=== PATIENT | female | born 1980 | race Caucasian/White ===

== ENCOUNTER → 2016-08-26 | Outpatient (CLI) | payer BC ==
--- NOTE | 2016-08-26 13:18 | CT ---
EXAMINATION TYPE: CT abdomen pelvis w con DATE OF EXAM: 08/26/2016 COMPARISON: 04/23/2012 HISTORY: 36-year-old female RLQ pain, history of ovarian cyst TECHNIQUE: Contiguous axial scanning of the abdomen and pelvis following administration of 100 ml Omn ipaque 300 IV contrast. Delayed images through the kidneys and coronal/sagittal reconstructions perf ormed. CT DLP: 1560.3 mGycm Automated exposure control for dose reduction was used. FINDINGS: The heart is normal size without pericardial effusion. Lung bases clear without pleural effusion. There is a tiny hiatal hernia. No focal liver lesion or biliary ductal dilatation. Portal venous system is patent. Gallbladder, adrenal glands, kidneys, spleen, and pancreas appear within normal limits. No dilated small bowel, free fluid, or free air. No mesenteric or retroperitoneal lymphadenopathy. While the appendix is not seen, no focal inflammatory changes seen in the right lower quadrant to sug gest appendicitis. Moderate stool within the right hemicolon. Bladder urine distended. Uterus and ovaries are visualized with follicular change in both sides. Righ t ovary measures 2.4 x 2.9 x 3.7 cm for a volume of 12.9 ml which is normal. In the left ovary, there is a 1.8 cm peripherally enhancing crenulated structure suggesting a recently ruptured follicle or c orpus luteum. Bilateral tubal ligation clips are present. No pelvic free fluid or pelvic lymphadenopa thy seen. Bones: Sclerosis at the left greater than right SI joint suggesting condensing ileitis. No osseous de structive process. IMPRESSION: 1. NORMAL-SIZED OVARIES WITH PHYSIOLOGIC CHANGES. NO PELVIC FREE FLUID. 2. THE APPENDIX IS NOT VISUALIZED. NO SECONDARY FINDINGS OF ACUTE APPENDICITIS IN THE RIGHT LOWER MARTI DRANT. 3. MODERATE STOOL WITHIN THE RIGHT HEMICOLON.
== END | disposition home or self-care (01) ==
LOC: RADCTMAIN 12:02
PROVIDERS: ATTEND Family Medicine
DX: K59.00 Constipation, unspecified (principal); R10.9 Unspecified abdominal pain
CPT/HCPCS: 74177; Q9967

== ENCOUNTER → 2017-01-05 | Outpatient (CLI) | payer BC ==
--- NOTE | 2017-01-05 12:00 | FL ---
EXAMINATION: Cervical and Thoracic Esophagram DATE OF EXAM: 01/05/2017 CLINICAL INDICATION: 36-year-old female with dysphagia, sensation of food sticking in the distal esop hagus. Needing a lot of water to wash food down. COMPARISON: None Total Fluoroscopy Time: 1.24 minutes. Total images: 19 FINDINGS: The swallowing mechanism is normal and hypopharyngeal anatomy is preserved. There is some mild anteri or cervical spondylosis at C6-C7. The cervical and thoracic portions have a normal course and caliber and normal motility. The mucosa i s normal and no persistent filling defect is encountered. There is a small sliding hiatal hernia demonstrated. Suboptimal effort for further assessment of refl ux as the patient became nauseated. IMPRESSION: 1. Small sliding hiatal hernia. 2. Assessment for reflux was limited as the patient became nauseated. 3. Otherwise, no specific abnormality seen.
== END | disposition home or self-care (01) ==
LOC: RADFLWHC 07:59
PROVIDERS: ATTEND Otolaryngology
DX: K44.9 Diaphragmatic hernia without obstruction or gangrene (principal); R13.10 Dysphagia, unspecified
CPT/HCPCS: 74220

== ENCOUNTER → 2018-09-18 | Outpatient (CLI) | payer BC ==
[2018-09-18 09:18] LABS: Basophils # (A) 0.1 k/uL (0-0.2); Basophils % (A) 1 %; Eosinophils # (A) 0.3 k/uL (0-0.7); Eosinophils % (A) 5 %; HCT 43.6 % (34.0-46.0); Lymphocytes # (A) 2.2 k/uL (1.0-4.8); Lymphocytes % (A) 35 %; MCH 29.5 pg (25.0-35.0); MCHC 32.1 g/dL (31.0-37.0); MCV 91.9 fL (80.0-100.0); Mean Platelet Volume 8.1; Monocytes # (A) 0.3 k/uL (0-1.0); Monocytes % (A) 5 %; Neutrophils # (A) 3.2 k/uL (1.3-7.7); Neutrophils % (A) 51 %; Platelet Count 280 k/uL (150-450); RBC 4.75 m/uL (3.80-5.40); RDW 13.9 % (11.5-15.5); WBC 6.2 k/uL (3.8-10.6)
[2018-09-18 09:41] LABS: African American GFR (CKD) >90 (>60 ml/min/1.73 sqM); Anion Gap 8 mmol/L; Blood Urea Nitrogen 12 mg/dL (7-17); Carbon Dioxide 27 mmol/L (22-30); Chloride 104 mmol/L (98-107); Glucose 100 mg/dL (74-99); Potassium 4.7 mmol/L (3.5-5.1); Sodium 139 mmol/L (137-145)
== END | disposition home or self-care (01) ==
LOC: LABPAT 08:45
PROVIDERS: ATTEND Obstetrics & Gynecology
DX: Z01.812 Encounter for preprocedural laboratory examination (principal); N94.6 Dysmenorrhea, unspecified
CPT/HCPCS: 36415; 80051; 82565; 82947; 84520; 85025; 87086

== ENCOUNTER 2018-09-27 05:59 | Observation (INO) | payer BC ==
--- NOTE | 2018-09-23 14:03 | HP ---
HISTORY AND PHYSICAL This is a 38-year-old white female 2, para 2-0-0-2, who presented with a history of dysmenorrhea. She states she has significant severe pain 2 days out of each cycle. She additionally has a history of ovarian cyst in the past. She has a history of tubal ligation 5 years ago. Sonographic evaluation suggests asymmetric thickening of the endometrium, consistent sonographically with adenomyosis. Ovaries normal sonographically. After thorough consultation, patient is electing vaginal hysterectomy. PAST MEDICAL HISTORY: Significant for hypothyroidism and dysmetabolic syndrome. PAST SURGICAL HISTORY: Tubal ligation in the past. CURRENT MEDICATIONS: 1. Synthroid daily. 2. Vitamin D daily. ALLERGIES: None known. FAMILY HISTORY: Significant for coronary artery bypass graft in the patient's father. OBSTETRIC HISTORY: Normal spontaneous vaginal deliveries in 2003 and 2004, 8 to 9 pound infants. SOCIAL HISTORY: Patient has never been a smoker, she is , she denies alcohol or drug use. PHYSICAL EXAM: This is a pleasant white female who is 5 foot 4 inches, 243 pounds, BMI 41, blood pressure 126/78. HEENT: Exam reveals no thyromegaly, no cervical lymphadenopathy. Good dentition. CHEST: Clear to auscultation in all trejo anteriorly and posteriorly. CARDIAC: Exam reveals a regular rate and rhythm with no murmur, click, or rub. Breasts are bilaterally symmetric to inspection with no skin dimpling, nipple discharge, axillary adenopathy, or discernible lesions or masses. EXTREMITIES: Reveal no edema, there are good peripheral pulses noted. Cervix is multiparous, Pap smear is up to date and normal. Uterus is anteverted, anteflexed, smooth and mobile. There is a small amount of prolapse noted in applying pressure to the cervix with a ring forceps. Adnexa are negative to palpation bilaterally. Rectal exam reveals good sphincter tone, FIT negative stool. IMPRESSION: Severe dysmenorrhea. Sonographic findings consistent with adenomyosis. PLAN: We will proceed with vaginal hysterectomy. The patient is aware of the risks, benefits, and alternatives of this plan. She consents to BSO if ovaries do not appear normal to inspection, however, sonographically they appear to be normal. She consents to abdominal hysterectomy if the vaginal approach is not successful. We have reviewed the risks of bleeding, infection, perforation or damage to bowel, bladder, ureters, or indeed any pelvic or abdominal organs. The ACOG pamphlet on the procedure has been given to the patient and reviewed. I believe she understands these risks with no questions or concerns. Risks of anesthesia are also reviewed. MMODL / IJN: [id number] /
[~2018-09-27 05:59] MED LIST: DEXAMETHASONE SOD PHOSPHATE 10 MG/ML 1 ML VIAL IV ONE; LIDOCAINE 1% 20 ML VIAL (10MG/ML) FOR IV START INTRADERMA PRN; ONDANSETRON 4 MG/2 ML VIAL IVP ONE; ONDANSETRON 4 MG/2 ML VIAL IVP PRN; SCOPOLAMINE 1.5MG/72HR PATCH TRANSDERM ONE
[2018-09-27] MEDS: LACTATED RINGERS 1,000 ML IV SCH ×3 (06:35→20:56)
[2018-09-27] MEDS ORDERED: MIDAZOLAM (PF) 2 MG/2 ML VIAL IVP ONE (06:48)
[2018-09-27] MEDS ORDERED: MIDAZOLAM 2 MG/2 ML VIAL ONE (07:25)
[2018-09-27] MEDS ORDERED: NEOSTIGMINE 1 MG/ML 10 ML VIAL ONE (07:25)
[2018-09-27] MEDS ORDERED: LIDOCAINE 1% INJ 10MG/ML (20 ML MDV) ONE (07:25)
[2018-09-27] MEDS ORDERED: MORPHINE SULFATE (PF) 0.3 MG/0.3 ML SYR ONE (07:25)
[2018-09-27] MEDS ORDERED: fentaNYL (PF) 50 MCG/ML 2 ML AMP ONE (07:25)
[2018-09-27] MEDS ORDERED: PROPOFOL 10 MG/ML 20 ML VIAL IV ONE (07:25)
[2018-09-27] MEDS ORDERED: KETAMINE 10 MG/ML 20 ML VIAL ONE (07:25)
[2018-09-27] MEDS ORDERED: ROCURONIUM BROMIDE 10 MG/ML 10 ML VIAL IV ONE (07:25)
[2018-09-27] MEDS ORDERED: SUCCINYLCHOLINE CHLORIDE 100 MG/5 ML SYR IV ONE (07:25)
[2018-09-27] MEDS ORDERED: GLYCOPYRROLATE 0.2 MG/ML 2 ML VIAL ONE (07:25)
[2018-09-27] MEDS ORDERED: SODIUM CHLORIDE 0.9% 50 ML with VASOPRESSIN 20 UNIT IV ONE ×2 (07:45)
[2018-09-27] MEDS ORDERED: BACITRACIN 500 UNIT/GM OINT 28.4 GM TUBE TOPICAL ONE (08:03)
[2018-09-27] MEDS ORDERED: LACTATED RINGERS 1,000 ML IV ONE (08:08)
[2018-09-27] MEDS ORDERED: MORPHINE SULFATE 2 MG/ML SYRINGE IVP PRN (08:31)
[2018-09-27] MEDS ORDERED: diphenhydrAMINE 50 MG/ML 1 ML VIAL IVP PRN (08:31)
[2018-09-27] MEDS ORDERED: NALOXONE 0.4 MG/ML 1 ML VIAL IV PRN (08:31)
[2018-09-27] MEDS ORDERED: KETOROLAC 30 MG/ML 1 ML VIAL IVP PRN (08:50)
[2018-09-27] MEDS ORDERED: ONDANSETRON 4 MG/2 ML VIAL IVP PRN (08:50)
[2018-09-27] MEDS ORDERED: SIMETHICONE 80 MG CHEWABLE PO PRN (08:50)
[2018-09-27] MEDS ORDERED: METOCLOPRAMIDE 5 MG/ML 2 ML VIAL IVP PRN (08:50)
[2018-09-27] MEDS ORDERED: ZOLPIDEM 5 MG TAB PO PRN (08:50)
--- NOTE | 2018-09-27 08:50 | P.OP ---
Date of Procedure: 09/27/18 Preoperative Diagnosis: Severe dysmenorrhea Postoperative Diagnosis: Same, suspect adenomyosis. Normal-appearing ovaries bilaterally. Procedure(s) Performed: Vaginal hysterectomy Anesthesia: CHUCKA Surgeon: Delaney Nguyen Manager Group Home #1: Jocelyne Barber Estimated Blood Loss (ml): 150 IV fluids (ml): 900 Urine output (ml): 150 Pathology: other (Cervix and uterus) Condition: stable Disposition: PACU Operative Findings: Normal-appearing ovaries bilaterally Description of Procedure: Patient is brought to the operating suite, a spinal with Duramorph was placed in the preoperative area. Patient is now given a general anesthetic and put in the dorsal lithotomy position. The appropriate timeout is performed to assure proper patient and procedural identification. Urine hCG is negative. Antibiotics are given. The cervix, vagina, and perineal bodies are all prepped and draped in the usual sterile fashion. The weighted speculum was placed into the vagina. The bladder is drained for 150 mL of clear yellow urine. The anterior lip of the cervix is grasped with a double-tooth tenaculum. The cervix is injected circumferentially with a dilute Pitressin solution. A tribe blade scalpel is used to incise the mucosa circumferentially with a V positioning at 6:00. A sponge rolled finger is used to sweep the mucosa from the underlying fascial plane. At all times care is taken to keep the mucosa swept well from the operative field to avoid bladder and/or ureteral injury. Peritoneum is entered at 6:00 with a Metzenbaum scissor and suture tied with 2-0 Vicryl, held with a hemostat. Large billed speculum is then placed into the peritoneal cavity. The right uterosacral ligament is identified, skeletonized, clamped cut and held laterally with a 0 Vicryl suture. The same is carried out contralaterally. Uterine vasculature is next identified, it is clamped cut and suture ligated. Care is taken to occlude all vessels as vascularization is increased in this particular patient. 2 additional pedicles are taken superior to the vessels. The anterior peritoneum is entered 12:00. The uterus is "walked out" posteriorly. Milagros clamps are used across the final pedicles and the cervix and uterus are removed and sent to pathology. The remaining pedicles are tied securely with 0 Vicryl suture in a Gina stitch, flashed, and retied for very good hemostasis. Sponge stick is used to visualize the ovaries and they appear within normal limits bilaterally. The Filshie clips is in the surgical field and removed. The other clip was not visualized. The speculum is then switched to the shallow weighted speculum and the 2-0 Vicryl suture placed at 6:00 is brought around circumferentially to close the peritoneum. The uterosacral cardinal ligaments that were held are now brought across contralaterally to incorporate the opposite ligament as well as vaginal mucosa. 2 additional hohvau-nb-rmfxd sutures are placed above this area, and one below to completely close the vaginal cough. The field is clean and dry. Luque catheter is placed and urine is clear. The vagina is packed with one-inch iodophor gauze with basic tracing. Patient is brought back to recovery room in very good condition with stable vital signs including blood pressure 125/68, pulse 86. All sponge needle and enhancement counts are correct at the end of this procedure.
[2018-09-27] MEDS: HYDROmorphone 0.5 MG/0.5 ML SYRINGE IVP PRN ×4 (09:29→10:00)
[2018-09-27] MEDS ORDERED: KETOROLAC 30 MG/ML 1 ML VIAL IVP ONE (09:38)
[2018-09-27] MEDS ORDERED: fentaNYL (PF) 50 MCG/ML 2 ML AMP IVP ONE (10:10)
[2018-09-27] MEDS: KETOROLAC 30 MG/ML 1 ML VIAL IVP SCH ×3 (10:39→20:56)
[2018-09-27 10:51] VITALS: BMI 41.3
[2018-09-27] MEDS: diphenhydrAMINE 50 MG/ML 1 ML VIAL IVP PRN ×2 (12:47→18:18)
[2018-09-27] MEDS: SENNOSIDES-DOCUSATE SODIUM 1 EACH TAB PO SCH (20:54)
[2018-09-28] MEDS: KETOROLAC 30 MG/ML 1 ML VIAL IVP SCH (02:39)
[2018-09-28 05:03] VITALS: RESP 16
--- NOTE | 2018-09-28 06:58 | P.DS ---
Providers Date of admission: 09/27/18 23:44 Expected date of discharge: 09/28/18 Attending physician: Delaney Nguyen Primary care physician: Brenna [place] Hospital Course: This is a 38-year-old white female who presented with a history of dysmenorrhea. After thorough consultation, she elected to proceed with vaginal hysterectomy. Please see dictated history and physical for details. Yesterday she was taken to the operating room under my care, and underwent vaginal hysterectomy. She received a spinal with Duramorph. Ovaries appeared normal to inspection and therefore were left in situ per her wishes. Please see my dictated operative note for details. This morning the patient is doing well. She is voiding, ambulating and passing flatus without difficulty. Vital signs are stable and she is afebrile. Vaginal packing and Luque catheter have both been removed. Diet has been advanced. Pain is well tolerated. Patient is judged to be in very good condition for discharge home. She will follow-up with me in the office in 2 weeks. I have reminded her no intercourse, tampons or douching. She will use anev-wxi-xnptnfq Advil or Aleve, or ibuprofen as needed for pain. I've asked her to call me with any fevers shakes or chills, bloody vaginal drainage, with any pain not alleviated by sfby-rau-fjkkutk products, or indeed with any difficulties or concerns. Pathology report at this time is pending. Patient Condition at Discharge: Good Plan - Discharge Summary Discharge Rx Participant: No New Discharge Prescriptions: No Action No Known Home Medications Discharge Medication List No Known Home Medications 09/17/18 [History] Follow up Appointment(s)/Referral(s): Delaney Nguyen MD [STAFF PHYSICIAN] - 2 Weeks Discharge Disposition: HOME SELF-CARE
[2018-09-28] MEDS ORDERED: IBUPROFEN 800 MG TAB PO PRN (08:15)
--- NOTE | 2018-09-28 08:30 | P.PN ---
Progress Note - Text 09/28 710am 38-year-old female status post vaginal hysterectomy by Dr. Nguyen. Patient had a spinal Duramorph injection for postop pain control, she was seen this morning she has a VAS of 1 with no complaints of nausea vomiting. She had complains of pruritus should subside soon.
[2018-09-28] MEDS: SENNOSIDES-DOCUSATE SODIUM 1 EACH TAB PO SCH (08:41)
[2018-09-28 09:18] VITALS: BP 117/72; PULSE 76; TEMP 98.2
== END 2018-09-28 11:25 | disposition home or self-care (01) ==
LOC: OR 05:59 → 6PED 09:15 → OR 23:43 → 6PED 23:44
PROVIDERS: ADMIT Obstetrics & Gynecology; ATTEND Obstetrics & Gynecology
DX: N94.6 Dysmenorrhea, unspecified (principal); L29.9 Pruritus, unspecified; E03.9 Hypothyroidism, unspecified; K44.9 Diaphragmatic hernia without obstruction or gangrene; E88.81 Metabolic syndrome and other insulin resistance; Z79.890 Hormone replacement therapy; Z98.51 Tubal ligation status; Z87.42 Personal history of other diseases of the female genital tract; Z82.49 Family history of ischemic heart disease and other diseases of the circulatory system
CPT/HCPCS: 94760; 81025; 88307; 58260; G0378 ×2; J2250 ×2; J1200; J1100; J2710; J0690; J2405; J2001; J2274; J3010; J1885 ×2; J0330; J2704; J1170; 86850; 86900; 86901

== ENCOUNTER → 2022-12-17 | Outpatient (CLI) | payer BC ==
--- NOTE | 2022-12-19 10:16 | MR ---
EXAMINATION TYPE: MR cervical spine wo con DATE OF EXAM: 12/17/2022 COMPARISON: X-ray cervical spine 10/06/2022 HISTORY: Neck pain with numbness and tingling in Right arm and fingers x6mos CONTRAST: None TECHNIQUE: Multiplanar multiecho imaging on a 3.0 Angélica magnet is performed through the cervical spin e. FINDINGS: The craniovertebral junction is normal. Vertebral body alignment is normal. C7-T1: Broad-based disc bulge with mild anterior thecal sac contact. No cord contact or spinal canal stenosis present. Neural foramen are patent.. C6-7: Broad-based disc bulge with mild anterior thecal sac compression. This may be slightly greater in the right paracentral region. No cord contact or spinal canal stenosis is present. Uncovertebral j oint has mild foraminal narrowing bilaterally.. C5-6: Broad-based disc bulge with mild anterior thecal sac compression. No cord contact or spinal can al stenosis present mild uncovertebral joint hypertrophy contributes to mild foraminal narrowing bila terally.. C4-5: There is a right paracentral focal protrusion with moderate anterior thecal sac compression. Th is comes in close approximation with spinal cord. Mild cord deformity may be present. No AP spinal ca nal stenosis is present foramen are patent.. C3-4: No focal disc herniation or significant disc bulge is evident. No spinal canal stenosis or jerry ral foraminal stenosis is present. C2-3: No focal disc herniation or significant disc bulge is evident. No spinal canal stenosis or jerry ral foraminal stenosis is present. IMPRESSION: 1. Right paracentral focal protrusion C4-5 with moderate anterior thecal sac compression is in close approximation with the spinal cord. Cord contact is not clearly identified although some cord deformi ty may be present through this level. 2. Disc bulging C5-6 C6-7 and C7-T1 with mild anterior thecal sac compression without spinal canal st enosis.
== END | disposition home or self-care (01) ==
LOC: RADMRIMAIN 16:57
PROVIDERS: ATTEND Orthopaedic Surgery
DX: M47.812 Spondylosis without myelopathy or radiculopathy, cervical region (principal); M50.221 Other cervical disc displacement at C4-C5 level; M50.33 Other cervical disc degeneration, cervicothoracic region
CPT/HCPCS: 72141

== ENCOUNTER → 2022-12-18 | Outpatient (CLI) | payer BC ==
[2022-12-19 04:39] LABS: Basophils # (A) 0.06 X 10*3/uL (0.00-0.10); Basophils % (A) 0.8 %; Eosinophils # (A) 0.35 X 10*3/uL (0.04-0.35); Eosinophils % (A) 4.7 %; HCT 45.3 % (37.2-46.3); HGB 14.5 d/dL (12.0-15.0); Lymphocytes # (A) 3.08 X 10*3/uL (0.90-5.00); Lymphocytes % (A) 41.5 %; MCH 29.5 pg (27.0-32.0); MCV 92.1 FL (80.0-97.0); Mean Platelet Volume 11.6 FL (9.5-12.2); Monocytes # (A) 0.61 X 10*3/uL (0.20-1.00); Monocytes % (A) 8.2 %; NRBC Per 100 WBC 0 X 10*3/uL (0.00-0.01); Neutrophils # (A) 3.31 X 10*3/uL (1.80-7.70); Neutrophils % (A) 44.5 %; Platelet Count 296 X 10*3/uL (140-440); RBC 4.92 X 10*6/uL (4.10-5.20); RDW 12.5 % (11.5-14.5); WBC 7.43 X 10*3/uL (4.50-10.00)
== END | disposition home or self-care (01) ==
LOC: LABPAT 15:52
PROVIDERS: ATTEND Obstetrics & Gynecology
DX: Z01.812 Encounter for preprocedural laboratory examination (principal); N83.291 Other ovarian cyst, right side
CPT/HCPCS: 85025

== ENCOUNTER 2022-12-30 11:03 | Observation (INO) | payer BC ==
[~2022-12-30 11:03] MED LIST changes: -DEXAMETHASONE SOD PHOSPHATE 10 MG/ML 1 ML VIAL IV ONE; +DEXAMETHASONE SOD PHOSPHATE 4 MG/ML 1 ML VIAL IV ONE; +LIDOCAINE 1% (10MG/ML) FOR IV START INTRADERMA PRN; -LIDOCAINE 1% 20 ML VIAL (10MG/ML) FOR IV START INTRADERMA PRN; +MIDAZOLAM 2 MG/2 ML VIAL IV PRN; -ONDANSETRON 4 MG/2 ML VIAL IVP PRN; -SCOPOLAMINE 1.5MG/72HR PATCH TRANSDERM ONE
[2022-12-30] MEDS: LACTATED RINGERS 1,000 ML IV SCH ×2 (11:39→19:42)
[2022-12-30] MEDS ORDERED: MIDAZOLAM 2 MG/2 ML VIAL ONE (12:41)
[2022-12-30] MEDS ORDERED: fentaNYL (PF) 50 MCG/ML 2 ML AMP ONE (12:41)
[2022-12-30] MEDS ORDERED: LIDOCAINE 1% INJ 10MG/ML (20 ML MDV) ONE (12:41)
[2022-12-30] MEDS ORDERED: NEOSTIGMINE 1 MG/ML 10 ML VIAL ONE (12:41)
[2022-12-30] MEDS ORDERED: KETOROLAC 30 MG/ML 1 ML VIAL ONE (12:41)
[2022-12-30] MEDS ORDERED: PROPOFOL 10 MG/ML 20 ML VIAL IV ONE (12:41)
[2022-12-30] MEDS ORDERED: GLYCOPYRROLATE 0.2 MG/ML 2 ML VIAL ONE (12:41)
[2022-12-30] MEDS ORDERED: SUCCINYLCHOLINE CHLORIDE 200 MG/10 ML VIAL IV ONE (12:41)
[2022-12-30] MEDS ORDERED: HYDROmorphone (PF) 1 MG/ML ONE (12:41)
[2022-12-30] MEDS ORDERED: ROCURONIUM 10 MG/ML (5 ML VIAL) IV ONE (12:41)
[2022-12-30] MEDS ORDERED: ONDANSETRON 4 MG/2 ML VIAL IVP PRN (13:45)
[2022-12-30] MEDS ORDERED: METOCLOPRAMIDE 5 MG/ML 2 ML VIAL IVP PRN (13:45)
[2022-12-30] MEDS ORDERED: Acetaminophen-Codeine 300-30mg TAB PO PRN (13:45)
[2022-12-30] MEDS ORDERED: diphenhydrAMINE 50 MG/ML 1 ML VIAL IVP PRN (13:45)
--- NOTE | 2022-12-30 13:56 | P.OP ---
Date of Procedure: 12/30/22 Preoperative Diagnosis: 1. Complex right adnexal mass Postoperative Diagnosis: Same Procedure(s) Performed: #1. Excision of complex adnexal mass #2. Moderate adhesiolysis Anesthesia: LINSEY Surgeon: Terry Orellana Manager Van #1: Temi Partida Estimated Blood Loss (ml): 50 IV fluids (ml): 500 Urine output (ml): 40 Pathology: other (#1. Complex right adnexal mass #2. Peritoneal washings) Condition: stable Disposition: PACU Operative Findings: Preoperatively, the mass was palpable at the top of the vaginal cuff and felt fairly fixed under anesthesia. It was relatively soft and mobile. Intraoperati vely, there was a moderate amount of pelvic adhesions and adhesions or dense tissue noted at the level of the fascia and rectus muscles from previous surgeries. Peritoneal washings were taken prior to exploring the pelvis. After the washings had been set aside, the pelvic mass was palpable attached to the anterior vaginal cuff and possibly bladder. Some blunt dissection was able to free some of the less dense adhesions and was able to be elevated into the incision. The mass was clearly separate from the ovary which was underlying and densely adherent to the ovarian fossa. The mass appeared to be most likely a hydrosalpinx with a possible para ovarian or paratubal cyst adherent as well. There was a Filshie clip noted in the mass as well. Palpation of the left ovary was felt to be normal though was densely adherent into the ovarian fossa as well. Clear urine was made throughout the case. Description of Procedure: The patient was prepped and draped in usual fashion after general endotracheal anesthesia was administered by the anesthesiologist. A Pfannenstiel incision was made through pre-existing scar, perhaps half the length of the original scar or approximate 10 cm. It was extended into the abdominal cavity with some difficulty encountered at the level of the fascia and rectus muscles which were densely adherent and thick. Once the peritoneal cavity had been entered, the peritoneal opening was enlarged and pelvic washings taken. The pelvis was then explored with the findings as noted above. After some blunt dissection using fingers, the mass was mobilized enough to bring into the area of the surgical field where it could be seen and its attachments could be further delineated. It did appear to be attached to either the superior portion of the bladder or perhaps the vaginal cuff. Nevertheless I was able to carefully dissected the mass away from the adherent tissues with the Metzenbaum scissors. It became apparent that it was also adherent to the underlying ovary and some of the ovarian capsule was likely removed with the mass. Once the mass was free enough, Gina Loomis clamp was placed across remaining tissue in which there were no important structures. It was then removed from the patient and sent for pathological diagnoses. The mass remained intact throughout. The pedicle was then tied off with a transfixion stitch of 0 Vicryl. Exploration of the area of dissection demonstrate some ongoing bleeding from the ovarian cortex which was not made hemostatic with the Bovie alone. Instead, a stitch of 3-0 Vicryl was utilized in a running locking stitch to close the capsule which provided excellent hemostasis. The remainder of the surgical areas appeared to be relatively dry though there was some generalized oozing. Surgical C no was sprayed onto the area for further hemostasis. Prior to placement of the Snow, thorough irrigation was carried out and there was no ongoing significant bleeding of any kind. The fascia was then closed with 2 running stitches of 0 Vicryl proceeding from the lateral margins to the midpoint. The subcutaneous tissues were irrigated, made hemostatic with the Bovie, and reapproximated with a running stitch of 2-0 Vicryl. The skin was reapproximated with a running subcuticular stitch of 4-0 Vicryl followed by half-inch Steri-Strips placed with Mastisol. Estimated blood loss for the case was approximately 50 mL. There were no complications. All sponge, instrument, and needle counts were correct. The patient tolerated the procedure well and proceeded to the recovery room in stable condition.
[2022-12-30] MEDS: HYDROmorphone 0.5 MG/0.5 ML SYRINGE IVP PRN ×2 (14:10→14:15)
[2022-12-30] MEDS: MEPERIDINE 50 MG/ML SYRINGE IVP ONE ×3 (14:23→14:41)
[2022-12-30] MEDS ORDERED: SODIUM CHLORIDE 0.9% 1,000 ML IV ONE (14:43)
[2022-12-30] MEDS ORDERED: HYDROmorphone PCA 10 MG/50 ML BAG IV PRN (16:24)
[2022-12-30] MEDS: SIMETHICONE 80 MG CHEWABLE PO PRN (16:51)
[2022-12-30] MEDS: SENNOSIDES-DOCUSATE SODIUM 1 EACH TAB PO SCH (19:57)
[2022-12-30] MEDS: Acetaminophen-Codeine 300-30mg TAB PO PRN (20:07)
[2022-12-30] MEDS: KETOROLAC 15 MG/ML 1 ML VIAL IVP PRN (23:29)
[2022-12-31] MEDS: Acetaminophen-Codeine 300-30mg TAB PO PRN (04:28)
[2022-12-31] MEDS: LACTATED RINGERS 1,000 ML IV SCH ×3 (04:29→11:26)
[2022-12-31 07:54] LABS: Basophils % (A) 0 %; Eosinophils # (A) 0.1 k/uL (0-0.7); Eosinophils % (A) 1 %; HCT 37.1 % (34.0-46.0); HGB 12.4 gm/dL (11.4-16.0); Lymphocytes # (A) 2.2 k/uL (1.0-4.8); Lymphocytes % (A) 21 %; MCH 30.3 pg (25.0-35.0); MCHC 33.3 g/dL (31.0-37.0); MCV 90.9 fL (80.0-100.0); Mean Platelet Volume 7.9; Monocytes # (A) 0.5 k/uL (0-1.0); Monocytes % (A) 5 %; Neutrophils # (A) 7.6 k/uL (1.3-7.7); Neutrophils % (A) 72 %; Platelet Count 246 k/uL (150-450); RBC 4.08 m/uL (3.80-5.40); RDW 12.3 % (11.5-15.5); WBC 10.5 k/uL (3.8-10.6)
--- NOTE | 2022-12-31 08:38 | P.PN ---
Subjective Progress Note Date: 12/31/22 Principal diagnosis: Right adnexal mass Patient reports feeling a fair amount of pain still this morning as she did not receive Duramorph prior to surgery. She is also having some nausea, likely from the codeine and Tylenol 3. She is tolerating liquids and has been able to get up on her own though not regularly yet. She denies flatus at this point. Objective - Vital Signs Vital signs: Vital Signs Temp 98.6 F 12/30/22 23:44 Pulse 96 12/30/22 23:44 Resp 16 12/30/22 23:44 BP 115/69 12/30/22 23:44 Pulse Ox 93 L 12/30/22 23:44 FiO2 Intake & Output 12/30/22 12/31/22 12/31/22 18:59 06:59 18:59 Intake Total 1150 Output Total 540 700 Balance 610 -700 Weight 112.5 kg Intake: IV 1150 Output: Urine 490 700 Estimated Blood Loss 50 Other: # Voids 1 - Exam In general, this is a well-developed, moderately obese white female in no acute distress though she does appear uncomfortable. Her abdomen is nondistended, soft, appropriately tender, and without any palpable masses. The incision is clean, dry, and intact. Her extremities without any cyanosis, clubbing, or edema and are nontender to palpation bilaterally. - Labs CBC & Chem 7: 12/31/22 07:42 Assessment and Plan (1) Adnexal mass Current Visit: Yes Status: Acute Code(s): N94.89 - OTH COND ASSOC W FEMALE GENITAL ORGANS AND MENSTRUAL CYCLE SNOMED Code(s): 518108505 Plan: The patient is status post laparotomy with excision of the right adnexal mass. I will change the Tylenol 3 to [place] 5/325 mg for pain control. I have encouraged her to ambulate in the hallways routinely. Unless she makes significant recovery today, she will likely be discharged home tomorrow. I've additionally instructed her to go slowly on her regular diet until she passes some gas.
[2022-12-31] MEDS ORDERED: HYDROcodone/APAP 5-325MG 1 EACH TAB PO PRN (08:47)
[2022-12-31] MEDS: HYDROcodone/APAP 5-325MG 1 EACH TAB PO PRN ×3 (09:07→19:43)
[2022-12-31] MEDS: SENNOSIDES-DOCUSATE SODIUM 1 EACH TAB PO SCH ×2 (09:09→19:43)
[2022-12-31] MEDS: KETOROLAC 15 MG/ML 1 ML VIAL IVP PRN (12:16)
[2022-12-31] MEDS ORDERED: ACETAMINOPHEN TAB 325 MG TAB PO PRN (13:47)
[2022-12-31] MEDS: IBUPROFEN 600 MG TAB PO PRN ×2 (18:15→23:46)
[2022-12-31] MEDS: SIMETHICONE 80 MG CHEWABLE PO PRN (19:44)
[2023-01-01] MEDS: IBUPROFEN 600 MG TAB PO PRN (05:59)
[2023-01-01] MEDS: SENNOSIDES-DOCUSATE SODIUM 1 EACH TAB PO SCH (08:21)
[2023-01-01 08:43] VITALS: BP 135/75; PULSE 77; RESP 15; TEMP 97.9
--- NOTE | 2023-01-01 08:56 | P.DS ---
Providers Date of admission: 12/31/22 12:08 Expected date of discharge: 01/01/23 Attending physician: Terry Orellana Primary care physician: Stated None - Discharge Diagnosis(es) (1) Adnexal mass Current Visit: Yes Status: Acute Hospital Course: The patient is a 42-year-old woman who has a history of a previous abdominal hysterectomy who was found with a roughly 8 cm right adnexal mass which was complex in nature. Workup for potential for malignancy was negative with the understanding that the mass needed to be removed. We ultimately agreed to proceed with the laparotomy with excision of right pelvic mass with the intention of including the ovary. She was taken the operating room where she underwent the above procedure of and was found that it was not an ovarian mass at all and likely primarily tubal in nature. The initial plan for removing the tubo-ovarian complex was abandoned as the ovary was not involved and was densely scarred into its ovarian fossa. The contralateral ovary was similarly scarred into its fossa and benign to palpation. The postoperative course was unremarkable and vital signs remained stable throughout. She was deemed stable for discharge on the morning of postoperative day #2 was discharged home to follow-up in the office in 2 weeks for an incision check and 6 weeks routinely. Discharge instructions included calling for any significantly increased fever, pain, incisional complaints, GI or urinary issues, or anything also concerned her. She was to remain off of pain medications until 2 weeks or off of pain medication, whichever came first. She understood her instructions and agrees to follow up as noted above. Discharge medications included any normal home medications as well as ozrc-oug-[id number] analgesic pain medications. She was additionally provided with a prescription for [place] 5/325 mg, 1-2 by mouth every 6 hours when necessary pain, #20 dispensed with no refills. Discharge hemoglobin and hematocrit were 12.4 and 37.1 respectively. Procedures: #1. Laparotomy #2. Excision of complex right adnexal mass Patient Condition at Discharge: Stable Plan - Discharge Summary Discharge Rx Participant: Yes New Discharge Prescriptions: No Action No Known Home Medications Discharge Medication List No Known Home Medications 09/17/18 [History] Follow up Appointment(s)/Referral(s): Terry Orellana MD [STAFF PHYSICIAN] - 2 Weeks Discharge Disposition: HOME SELF-CARE
== END 2023-01-01 09:38 | disposition home or self-care (01) ==
LOC: OR 11:03 → 4FBP 13:54 → OR 12-31 12:05 → 4FBP 12-31 12:08
PROVIDERS: ADMIT Obstetrics & Gynecology; ATTEND Obstetrics & Gynecology
DX: D27.0 Benign neoplasm of right ovary (principal); N73.6 Female pelvic peritoneal adhesions (postinfective); R11.0 Nausea; Z90.710 Acquired absence of both cervix and uterus
CPT/HCPCS: 96376; 96361; 96374; 96375; 85025; 88307; 58925; G0378 ×2; J2250; J0330; J1100; J2710; J2765; J2175; J0690; J2405; J2001; J3010; J1885 ×3; J1170 ×2; J2704

== ENCOUNTER → 2024-02-25 | Outpatient (CLI) | payer BC ==
--- NOTE | 2024-02-26 07:21 | MM ---
Reason for Exam: Screening (asymptomatic). Baseline mammogram. Patient History: Menarche at age 10. First Full-Term at age 22. Hysterectomy at age 40. Risk Values: Indu 5 year model risk: 0.7%. NCI Lifetime model risk: 8.6%. Prior Study Comparison: Patient's first Mammogram. Tissue Density: There are scattered areas of fibroglandular density. Findings: Analyzed By CAD. Right breast: There is no suspicious group of microcalcifications or new suspicious mass. Left breast: There is no suspicious group of microcalcifications or new suspicious mass. Overall Assessment: Negative, BI-RAD 1 Management: Screening Mammogram of both breasts in [address] [facility] will attempt to contact patient to return for supplemental views and ultrasound if indicated. Patient should continue monthly self-breast exams. A clinical breast exam by your physician is recommended on an annual basis. This exam should not preclude additional follow-up of suspicious palpable abnormalities. Note on Indu scores and lifetime risk: 1. A Indu score greater than 3% is considered moderate risk. If this is the case, consider specialist referral to assess eligibility for a risk reducing agent. 2. If overall lifetime risk for the development of breast cancer is 20% or higher, the patient may qualify for future screening with alternating mammogram and breast MRI. [facility], , 02/26/2024 7:18 AM. Electronically signed and approved by: Soren Roberts DO
== END | disposition home or self-care (01) ==
LOC: RADMAMWWP 15:26
PROVIDERS: ATTEND Obstetrics & Gynecology
DX: Z12.31 Encounter for screening mammogram for malignant neoplasm of breast (principal); R92.323 Mammographic fibroglandular density, bilateral breasts
CPT/HCPCS: 77063; 77067